=== PATIENT | male | born 1990 | race Caucasian/White ===

== ENCOUNTER 2019-06-18 12:13 | Outpatient (CLI) | payer MEDICARE, MEDICAID, SELFPAY ==
[2019-06-18 13:23] LABS: Blood Urea Nitrogen 14 mg/dL (6-20); Calcium 9.6 mg/dL (8.5-10.5); Carbon Dioxide 25 mmol/L (22-29); Chloride 94 mmol/L (98-107); Glomerular Filtration Rate 132.4 mL/min (90-130); Glucose 89 mg/dL (65-115); Osmolality Calculated 268 mOsm/kg (285-295); Potassium 3.96; Sodium 131 mmol/L (136-145)
== END 2019-06-18 12:14 | disposition home or self-care (01) ==
LOC: LAB 12:13
PROVIDERS: Family Provider Nurse Practitioner Family; PCP Registered Nurse; Visit Provider Registered Nurse
DX: R60.0 Localized edema (principal)
CPT/HCPCS: 36415; 80048

== ENCOUNTER → 2019-11-25 15:32 | Outpatient (BNVA) | payer MEDICARE, MEDICAID, SELFPAY | PROVIDERS: Family Provider Nurse Practitioner Family; PCP Registered Nurse; Visit Provider Dermatology | DX: R21 Rash and other nonspecific skin eruption (principal); L70.8 Other acne; L21.9 Seborrheic dermatitis, unspecified; L83 Acanthosis nigricans; D48.9 Neoplasm of uncertain behavior, unspecified | CPT/HCPCS: 11104; 88304; 88305; 88312; 99203; 99204 ==

== ENCOUNTER 2020-03-26 13:14 | Outpatient (CLI) | payer MEDICARE, MEDICAID, SELFPAY ==
[2020-03-26 14:22] LABS: Thyroid Stimulating Hormone 3.55 uIU/mL (0.27-4.20)
[2020-03-26 14:29] LABS: Estmated Average Glucose 91; Hemoglobin A1C 4.8 % (4.0-6.0)
== END 2020-03-26 13:15 | disposition home or self-care (01) ==
LOC: LAB 13:18
PROVIDERS: PCP Registered Nurse; Visit Provider Registered Nurse
DX: E11.9 Type 2 diabetes mellitus without complications (principal); E03.9 Hypothyroidism, unspecified
CPT/HCPCS: 36415; 83036; 84443

== ENCOUNTER → 2021-01-01 10:33 | Outpatient (BNVA) | payer MEDICARE, MEDICAID, SELFPAY | PROVIDERS: PCP Registered Nurse; Visit Provider Registered Nurse | DX: E03.9 Hypothyroidism, unspecified (principal); E66.01 Morbid (severe) obesity due to excess calories; Z68.42 Body mass index [BMI] 45.0-49.9, adult; L30.9 Dermatitis, unspecified; Z71.3 Dietary counseling and surveillance; Z71.82 Exercise counseling | CPT/HCPCS: 84443 ==

== ENCOUNTER 2021-08-02 12:12 | Outpatient (CLI) | payer MEDICARE, MEDICAID, SELFPAY ==
[2021-08-02 12:54] LABS: Basophils # 0.1 10^3/uL (0.0-0.1); Basophils % 0.8 %; Eosinophils # 0.2 10^3/uL (0.0-0.8); Eosinophils % 2.3 %; Hematocrit 44.7 % (42.0-52.0); Hemoglobin 14.5 g/dL (11.7-16.6); Lymphocytes # 2.2 10^3/uL (0.8-4.8); Lymphocytes % 24.6 %; Mean Corpuscular HGB Conc 32.4 g/dL (30.0-36.0); Mean Corpuscular Hemoglobin 27.6 pg (28.0-34.0); Mean Platelet Volume 9.6 fL (7.4-10.4); Monocytes # 0.6 10^3/uL (0.2-0.9); Neutrophils # 5.86 10^3/uL (1.8-7.7); Neutrophils % 64.5 %; Nucleated Red Blood Cells % 0 %; Platelet Count 202 10^3/cmm (130-400); Red Blood Count 5.26 10^6/uL (4.1-5.3); Red Cell Distribution Width 13.7 % (12.1-15.1); White Blood Count 9.1 10^3/uL (4.0-10.0)
[2021-08-02 13:27] LABS: Alanine Aminotransferase 14 U/L (0-41); Albumin Level 4.3 g/dL (3.5-5.2); Alkaline Phosphatase 18 IU/L (40-130); Anion Gap 13.6 (5-19); Aspartate Amino Transferase 16 U/L (0-40); Blood Urea Nitrogen 9 mg/dL (6-20); Calcium 8.8 mg/dL (8.5-10.5); Carbon Dioxide 32 mmol/L (22-29); Chloride 96 mmol/L (98-107); Globulin 2.9 g/dL (1.3-4.6); Glucose 87 mg/dL (65-115); Osmolality Calculated 284 mOsm/kg (285-295); Potassium 3.6 mmol/L (3.5-5.1); Sodium 138 mmol/L (136-145); Thyroid Stimulating Hormone 3.75 uIU/mL (0.27-4.20); Total Bilirubin 0.3 mg/dL (0.15-1.2); Total Protein 7.2 g/dL (6.6-8.7)
== END 2021-08-02 12:13 | disposition home or self-care (01) ==
LOC: LAB 12:14
PROVIDERS: PCP Registered Nurse; Visit Provider Registered Nurse
DX: I10 Essential (primary) hypertension (principal); E03.9 Hypothyroidism, unspecified
CPT/HCPCS: 36415; 80053; 84443; 85025

== ENCOUNTER → 2022-07-10 15:14 | Outpatient (BNVA) | payer MEDICARE, MEDICAID, SELFPAY | PROVIDERS: PCP Registered Nurse; Visit Provider Nurse Practitioner Family | DX: R39.9 Unspecified symptoms and signs involving the genitourinary system (principal); N20.0 Calculus of kidney | CPT/HCPCS: 81000 ==

== ENCOUNTER → 2022-07-18 16:10 | Outpatient (BNVA) | payer MEDICARE, MEDICAID, SELFPAY | PROVIDERS: PCP Registered Nurse; Visit Provider Registered Nurse | DX: E03.9 Hypothyroidism, unspecified (principal); R60.0 Localized edema; E11.9 Type 2 diabetes mellitus without complications | CPT/HCPCS: 80053; 81000; 84443; 85025 ==

== ENCOUNTER → 2023-07-28 09:27 | Outpatient (BNVA) | payer MEDICARE, MEDICAID, SELFPAY | PROVIDERS: PCP Registered Nurse; Visit Provider Registered Nurse | DX: E03.9 Hypothyroidism, unspecified (principal); E66.01 Morbid (severe) obesity due to excess calories; Z68.42 Body mass index [BMI] 45.0-49.9, adult; R60.0 Localized edema | CPT/HCPCS: 80053; 80061; 84443; 85025 ==

== ENCOUNTER → 2023-09-27 14:08 | Outpatient (BNVA) | payer MEDICARE, MEDICAID, SELFPAY | PROVIDERS: PCP Registered Nurse; Visit Provider Registered Nurse Neonatal Intensive Care | DX: J02.9 Acute pharyngitis, unspecified (principal) | CPT/HCPCS: 87880 ==

== ENCOUNTER → 2024-02-15 10:57 | Outpatient (BNVA) | payer MEDICARE, MEDICAID, SELFPAY | PROVIDERS: PCP Registered Nurse; Visit Provider Registered Nurse | DX: I10 Essential (primary) hypertension (principal) | CPT/HCPCS: 80053; 80061; 84443; 85025 ==

== ENCOUNTER 2024-03-12 14:00 | Outpatient (CLI) | payer MEDICARE, MEDICAID, SELFPAY | END 2024-03-12 14:01 | disposition home or self-care (01) | LOC: SLEEP 03-13 07:34 | PROVIDERS: PCP Registered Nurse; Visit Provider Registered Nurse | DX: G47.33 Obstructive sleep apnea (adult) (pediatric) (principal); G47.36 Sleep related hypoventilation in conditions classified elsewhere | CPT/HCPCS: G0399 ==

== ENCOUNTER → 2024-07-05 14:24 | Outpatient (BNVA) | payer MEDICARE, MEDICAID, SELFPAY | PROVIDERS: PCP Registered Nurse; Visit Provider Registered Nurse | DX: E11.9 Type 2 diabetes mellitus without complications (principal); E03.9 Hypothyroidism, unspecified | CPT/HCPCS: 80053; 80061; 83036; 83721; 84443; 85025 ==

== ENCOUNTER 2024-10-28 12:57 | Outpatient (CLI) | payer MEDICARE, MEDICAID, SELFPAY ==
[2024-10-28 15:08] LABS: Thyroid Stimulating Hormone 2.47 uIU/mL (0.27-4.20)
== END 2024-10-28 12:58 | disposition home or self-care (01) ==
LOC: LAB 12:59
PROVIDERS: PCP Registered Nurse; Visit Provider Registered Nurse
DX: E03.9 Hypothyroidism, unspecified (principal)
CPT/HCPCS: 36415; 84443